=== PATIENT | male | born 2000 | race Caucasian/White ===

== ENCOUNTER 2024-12-28 03:04 | Emergency (ER) | payer BC ==
[2024-12-28 03:39] LABS: #Basophils 0.13 10x3/uL (0.0-0.2); #Eosinophils 0.29 10x3/uL (0.0-0.5); #Monocytes 0.52 10x3/uL (0.0-1.1); #Neutrophils 2.12 10x3/uL (1.5-8.4); %Basophils 2.1 % (0.0-2.0); %Eosinophils 4.6 % (0.0-6.0); %Lymphocytes 51.4 % (18.0-47.0); %Monocytes 8.2 % (0.0-10.0); %Neutrophils 33.5 % (40.0-75.0); Hematocrit 35.8 % (38.8-50.0); Hemoglobin 10.6 g/dL (13.5-17.5); Mean Corpuscular Hemoglobin 21.5 pg (27.0-33.0); Mean Corpuscular Volume 72.8 fL (81.2-95.1); Platelet Count 279 10x3/uL (150-450); Red Blood Cell (RBC) Count 4.92 10x6/uL (4.32-5.72); White Blood Cell (WBC) Count 6.32 10x3/uL (3.5-10.5)
[2024-12-28 03:49] LABS: Acetaminophen Less than 10 mcg/mL (Less than 10); Lipase 36 U/L (8-78); Magnesium 2.2 mg/dL (1.6-2.6); Salicylate Less than 8.0 mg/dL (Less than 8.0)
[2024-12-28 03:52] LABS: Troponin I Less than 0.010 ng/mL (< 0.028)
[2024-12-28 03:58] LABS: ALT (SGPT) 11 U/L (Less than 45); AST (SGOT) 21 U/L (11-34); Albumin 4.5 g/dL (3.1-4.5); Alkaline Phosphatase 101 U/L (40-110); Anion Gap 14 mmol/L (10-20); BUN (Urea Nitrogen) 18 mg/dL (8.9-20.6); Bilirubin, Total 0.2 mg/dL (0.3-1.2); CK (CPK) 147 U/L (30-200); Calc. Creatinine Clearance 0 mL/min (70-130); Calcium 9.4 mg/dL (7.8-10.44); Carbon Dioxide 25 mmol/L (22-29); Chloride 103 mmol/L (98-107); Globulin 3.2 g/dL (2.4-3.5); Glucose 103 mg/dL (70-105); Potassium 3.9 mmol/L (3.5-5.1); Sodium 138 mmol/L (136-145)
== END 2024-12-28 06:28 | disposition home or self-care (01) ==
LOC: CSHERS 03:04
DX: R07.9 Chest pain, unspecified (principal); F41.9 Anxiety disorder, unspecified; F13.239 Sedative, hypnotic or anxiolytic dependence with withdrawal, unspecified; I50.9 Heart failure, unspecified; F17.220 Nicotine dependence, chewing tobacco, uncomplicated; Z86.711 Personal history of pulmonary embolism; Z79.899 Other long term (current) drug therapy; Z79.01 Long term (current) use of anticoagulants
CPT/HCPCS: 71045; 80053; 80307; 82550; 83605; 83690; 83735; 84443; 84484; 85025; 85379; 93005; 96374; J2060

== ENCOUNTER 2025-01-24 09:57 | Emergency (ER) | payer BC | END 2025-01-24 10:39 | disposition left against medical advice (07) | LOC: CSHERS 09:57 | DX: R07.2 Precordial pain (principal); I50.9 Heart failure, unspecified; F17.220 Nicotine dependence, chewing tobacco, uncomplicated; Z86.711 Personal history of pulmonary embolism | CPT/HCPCS: 71045; 93005 ==

== ENCOUNTER 2025-01-26 15:21 | Emergency (ER) | payer BC ==
[2025-01-26 16:00] LABS: #Basophils 0.10 10x3/uL (0.0-0.2); #Eosinophils 0.14 10x3/uL (0.0-0.5); #Monocytes 0.42 10x3/uL (0.0-1.1); #Neutrophils 2.29 10x3/uL (1.5-8.4); %Basophils 1.7 % (0.0-2.0); %Eosinophils 2.4 % (0.0-6.0); %Lymphocytes 50.0 % (18.0-47.0); %Monocytes 7.1 % (0.0-10.0); %Neutrophils 38.6 % (40.0-75.0); Hematocrit 34.0 % (38.8-50.0); Hemoglobin 10.7 g/dL (13.5-17.5); Mean Corpuscular Hemoglobin 23.6 pg (27.0-33.0); Mean Corpuscular Volume 75.1 fL (81.2-95.1); Platelet Count 361 10x3/uL (150-450); Red Blood Cell (RBC) Count 4.53 10x6/uL (4.32-5.72); White Blood Cell (WBC) Count 5.92 10x3/uL (3.5-10.5)
[2025-01-26] MEDS ORDERED: Buprenorphine 8mg/Naloxone 2mg per 1 FILM SL SCH (16:15)
[2025-01-26 16:21] LABS: ALT (SGPT) 15 U/L (Less than 45); AST (SGOT) 39 U/L (11-34); Albumin 4.2 g/dL (3.1-4.5); Alkaline Phosphatase 75 U/L (40-110); Anion Gap 10 mmol/L (10-20); BUN (Urea Nitrogen) 15 mg/dL (8.9-20.6); Bilirubin, Total 0.2 mg/dL (0.3-1.2); Calc. Creatinine Clearance 0 mL/min (70-130); Calcium 9.2 mg/dL (7.8-10.44); Carbon Dioxide 28 mmol/L (22-29); Chloride 107 mmol/L (98-107); Globulin 3.6 g/dL (2.4-3.5); Glucose 93 mg/dL (70-105); Lipase 36 U/L (8-78); Potassium 3.5 mmol/L (3.5-5.1); Sodium 141 mmol/L (136-145)
[2025-01-26 16:27] LABS: Troponin I Less than 0.010 ng/mL (< 0.028)
== END 2025-01-26 17:33 | disposition home or self-care (01) ==
LOC: CSHERS 15:21
DX: R07.9 Chest pain, unspecified (principal); F19.10 Other psychoactive substance abuse, uncomplicated; I50.9 Heart failure, unspecified; F17.210 Nicotine dependence, cigarettes, uncomplicated; F17.290 Nicotine dependence, other tobacco product, uncomplicated; Z86.711 Personal history of pulmonary embolism; Z76.5 Malingerer [conscious simulation]; R07.2 Precordial pain
CPT/HCPCS: 36415; 71045; 80053; 83690; 83880; 84484; 85025; 85379; 93005; 96374; J0571; J2060

== ENCOUNTER 2025-01-27 13:46 | Emergency (ER) | payer BC ==
[2025-01-27] MEDS ORDERED: Buprenorphine 8mg/Naloxone 2mg per 1 FILM SL SCH (15:45)
== END 2025-01-27 15:58 | disposition home or self-care (01) ==
LOC: CSHERS 13:46
DX: Z76.0 Encounter for issue of repeat prescription (principal); F11.90 Opioid use, unspecified, uncomplicated; I50.9 Heart failure, unspecified; Z86.711 Personal history of pulmonary embolism; F17.210 Nicotine dependence, cigarettes, uncomplicated; F17.290 Nicotine dependence, other tobacco product, uncomplicated
CPT/HCPCS: 99281; J0571